=== PATIENT | female | born 1960 | race African-American/Black ===

== ENCOUNTER 2020-07-28 18:12 | Inpatient (IN) | payer BC, SELFPAY ==
[~2020-07-28] VITALS: Ht 170.2 cm; Wt 125.6 kg
[~2020-07-28 18:12] MED LIST: AMOX-426 PO; COR6.25 PO; FURO-149 PO; GLIM2TAB PO; GLIP2.5T3 PO; GLU500 PO; METO5TAB8 PO; VALS160T2 PO
[2020-07-28 18:25] VITALS: BP_SYST 159
[2020-07-28] MEDS ORDERED: VANCOMYCIN HCL 1,000 MG in D5W 250 ML IV ONE (18:45)
[2020-07-28] MEDS ORDERED: cefTRIAXone 1 GM IVPB PREMIX 50 ML IV ONE (18:45)
[2020-07-28 19:23] LABS: BASOPHILS # (AUTO) 0.1 K/uL (0.0-0.2); BASOPHILS % (AUTO) 1.1 % (0.0-2.0); EOSINOPHILS # (AUTO) 0.5 K/uL (0.0-0.4); EOSINOPHILS % (AUTO) 4.7 % (0.0-4.0); HEMATOCRIT 30.9 % (36-48); HEMOGLOBIN 10.1 g/dL (12.0-16.0); LYMPHOCYTES # (AUTO) 1.6 K/uL (1.0-5.5); LYMPHOCYTES % (AUTO) 16.3 % (20.5-51.5); MEAN CORPUSCULAR HEMOGLOBIN 28 pg (27-31); MEAN CORPUSCULAR HGB CONC 33 % (32-36); MEAN CORPUSCULAR VOLUME 85 fL (79.0-98.0); MONOCYTES # (AUTO) 1.4 K/uL (0.0-1.0); MONOCYTES % (AUTO) 14.3 % (1.7-9.3); NEUTROPHILS # (AUTO) 6.2 K/uL (1.8-7.7); NEUTROPHILS % (AUTO) 63.6 % (40.0-70.0); PLATELET COUNT (AUTO) 324 K/uL (130-430); RED BLOOD CELL COUNT(AUTO) 3.66 MIL/uL (4.2-6.2); WHITE BLOOD COUNT (AUTO) 9.7 K/uL (4.8-10.8)
[2020-07-28] MEDS ORDERED: metroNIDAZOLE 500 mg/NS 100 ML IV ONE ×2 (19:30→22:32)
[2020-07-28 19:36] LABS: PROTHROMBIN TIME 10.2 SECS (9.5-12.5)
[2020-07-28] MEDS ORDERED: VANCOMYCIN HCL 1000 MG/VIAL IV ONE (19:52)
[2020-07-28 19:54] LABS: POTASSIUM 5.2 mmol/L (3.5-5.1)
[2020-07-28 19:55] LABS: ALBUMIN 2.3 g/dL (3.4-4.8); CALCIUM 8.3 mg/dL (8.4-11.0); CREATININE 3.21 mg/dL (0.55-1.30); TOTAL BILIRUBIN 0.1 mg/dL (0.0-1.0)
[2020-07-28] MEDS ORDERED: CARV6.2554 PO (21:06)
[2020-07-28] MEDS ORDERED: FURO-149 PO (21:06)
[2020-07-28] MEDS ORDERED: METO5TAB8 PO (21:12)
[2020-07-28] MEDS ORDERED: INSU100V9 SQ (21:12)
[2020-07-28] MEDS ORDERED: INSU200I SQ (21:12)
[2020-07-28] MEDS ORDERED: DORZ10DR21 OP (21:12)
[2020-07-28] MEDS ORDERED: LOSA50TA28 PO (21:12)
[2020-07-28] MEDS ORDERED: HYDROcodone/ACETAMIN 10-325 MG TAB PO PRN (22:15)
[2020-07-28] MEDS ORDERED: NALOXONE HCL 0.4 MG/ML AMP (NARCAN) IVP PRN (22:15)
[2020-07-28 22:48] LABS: BILIRUBIN,URINE NEGATIVE (NEGATIVE); BLOOD, URINE 3+ (NEGATIVE); COLOR,URINE YELLOW (YELLOW); GLUCOSE,URINE 1+ (NEGATIVE); KETONES,URINE NEGATIVE (NEGATIVE); LEUKOCYTE ESTERASE ,URINE TRACE (NEGATIVE); NITRITE, URINE NEGATIVE (NEGATIVE); PROTEIN URINE 3+ (NEGATIVE); UROBILINOGEN,URINE 0.2 (0.2-1.0)
[2020-07-28 22:49] LABS: CLARITY/URINE CLOUDY (CLEAR)
[2020-07-28 23:04] LABS: BACTERIA,URINE FEW /HPF (None Seen); RBC,URINE 20-50 /HPF (0-3)
[2020-07-28 23:45] VITALS: BP_SYST 131
[2020-07-29] MEDS ORDERED: PIPERACILLIN/TAZOBACTAM 2.25 GM VIAL IV ONE (00:24)
[2020-07-29] MEDS: PIPERACILLIN/TAZO 2.25G/DEX-IS 50 ML IV SCH ×2 (00:47→06:45)
[2020-07-29 06:19] LABS: BASOPHILS # (AUTO) 0.1 K/uL (0.0-0.2); BASOPHILS % (AUTO) 0.8 % (0.0-2.0); EOSINOPHILS # (AUTO) 0.5 K/uL (0.0-0.4); EOSINOPHILS % (AUTO) 5.3 % (0.0-4.0); HEMATOCRIT 32.5 % (36-48); HEMOGLOBIN 10.7 g/dL (12.0-16.0); LYMPHOCYTES # (AUTO) 1.6 K/uL (1.0-5.5); LYMPHOCYTES % (AUTO) 18.6 % (20.5-51.5); MEAN CORPUSCULAR HEMOGLOBIN 28 pg (27-31); MEAN CORPUSCULAR HGB CONC 33 % (32-36); MEAN CORPUSCULAR VOLUME 84 fL (79.0-98.0); MONOCYTES # (AUTO) 1.1 K/uL (0.0-1.0); MONOCYTES % (AUTO) 12.5 % (1.7-9.3); NEUTROPHILS # (AUTO) 5.6 K/uL (1.8-7.7); NEUTROPHILS % (AUTO) 62.8 % (40.0-70.0); PLATELET COUNT (AUTO) 358 K/uL (130-430); RED BLOOD CELL COUNT(AUTO) 3.87 MIL/uL (4.2-6.2); RED CELL DISTRIBUTION WIDTH 12.7 % (9.0-15.0); WHITE BLOOD COUNT (AUTO) 8.9 K/uL (4.8-10.8)
[2020-07-29 06:28] LABS: CALCIUM 8.4 mg/dL (8.4-11.0); CREATININE 3.02 mg/dL (0.55-1.30); POTASSIUM 4.8 mmol/L (3.5-5.1)
[2020-07-29] MEDS: INSULIN REGULAR, HUMAN 100 UNITS/ML, 10 ML VIAL (humuLIN R) SUBCUT PRN ×3 (06:50→21:57)
[2020-07-29] MEDS: GLIMEPIRIDE 2 MG TABLET PO SCH (06:51)
[2020-07-29 08:00] VITALS: BP_SYST 135
[2020-07-29] MEDS ORDERED: metFORMIN HCL 500 MG TABLET PO SCH (08:00)
[2020-07-29] MEDS ORDERED: *CUBICIN 6 MG/KG Q48H/PHARMACY XX PRN (08:30)
[2020-07-29] MEDS: FUROSEMIDE 40 MG TABLET PO SCH ×2 (08:33→21:48)
[2020-07-29] MEDS: CARVEDILOL 6.25 MG TABLET (COREG) PO SCH ×2 (08:33→21:00)
[2020-07-29] MEDS: INSULIN GLARGINE 100 UNITS/ML 10 ML VIAL SQ SCH (08:34)
[2020-07-29] MEDS: metOLazone 5 MG TABLET PO SCH (08:34)
[2020-07-29] MEDS ORDERED: glipiZIDE XL 2.5 MG/TAB (GLUCOTROL XL) PO SCH (09:00)
[2020-07-29] MEDS ORDERED: AMOXICILLIN/CLAVULANATE POTASSIUM 875 MG TABLET PO SCH (09:00)
[2020-07-29] MEDS ORDERED: LOSARTAN POTASSIUM 50 MG TABLET (COZAAR) PO SCH (09:00)
[2020-07-29] MEDS: CEFEPIME 0.5 GM in D5W 50 ML IV SCH ×2 (09:42→22:45)
[2020-07-29] MEDS ORDERED: DAPTOmycin 500 MG in NS 50 ML IV SCH (10:00)
[2020-07-29 12:06] VITALS: BP_SYST 139
[2020-07-29] MEDS: BALSAM PERU/CASTOR OIL 60 GM OINT...G. TP SCH (13:15)
[2020-07-29 15:52] VITALS: BP_SYST 142
[2020-07-29 20:00] VITALS: BP_SYST 134
[2020-07-29] MEDS: metroNIDAZOLE 250 mg/NS 50 ML IV SCH (21:49)
[2020-07-29] MEDS: ENOXAPARIN SODIUM 30 MG/0.3 ML SYRINGE SUBCUT SCH (21:56)
[2020-07-30 00:12] VITALS: BP_SYST 146
[2020-07-30] MEDS: LINEZOLID 300 ML IV SCH ×3 (00:17→21:05)
[2020-07-30] MEDS: metroNIDAZOLE 250 mg/NS 50 ML IV SCH ×3 (06:17→21:06)
[2020-07-30] MEDS: GLIMEPIRIDE 2 MG TABLET PO SCH (06:39)
[2020-07-30] MEDS: INSULIN GLARGINE 100 UNITS/ML 10 ML VIAL SQ SCH (09:00)
[2020-07-30] MEDS: CEFEPIME 0.5 GM in D5W 50 ML IV SCH ×2 (09:20→21:22)
[2020-07-30] MEDS: FUROSEMIDE 40 MG TABLET PO SCH ×2 (09:24→21:13)
[2020-07-30] MEDS: BALSAM PERU/CASTOR OIL 60 GM OINT...G. TP SCH (09:25)
[2020-07-30] MEDS: CARVEDILOL 6.25 MG TABLET (COREG) PO SCH ×2 (09:25→21:00)
[2020-07-30 11:23] VITALS: BP_SYST 127
[2020-07-30] MEDS ORDERED: ONDANSETRON HCL 4 MG/2 ML VIAL ONE (11:34)
[2020-07-30] MEDS: ONDANSETRON HCL 4 MG/2 ML VIAL IVP PRN ×2 (11:42→21:22)
[2020-07-30] MEDS: metOLazone 5 MG TABLET PO SCH (11:43)
[2020-07-30] MEDS: INSULIN REGULAR, HUMAN 100 UNITS/ML, 10 ML VIAL (humuLIN R) SUBCUT PRN ×2 (17:14→21:21)
[2020-07-30] MEDS: calcitrioL 0.25 MCG CAPSULE PO SCH (19:00)
[2020-07-30 19:45] VITALS: BP_SYST 133
[2020-07-30] MEDS: ENOXAPARIN SODIUM 30 MG/0.3 ML SYRINGE SUBCUT SCH (21:20)
[2020-07-31] VITALS: BP_SYST 162
[2020-07-31] MEDS: metroNIDAZOLE 250 mg/NS 50 ML IV SCH ×3 (05:06→22:13)
[2020-07-31 06:27] LABS: BASOPHILS # (AUTO) 0.1 K/uL (0.0-0.2); BASOPHILS % (AUTO) 1.1 % (0.0-2.0); EOSINOPHILS # (AUTO) 0.6 K/uL (0.0-0.4); HEMATOCRIT 31.4 % (36-48); HEMOGLOBIN 10.2 g/dL (12.0-16.0); LYMPHOCYTES # (AUTO) 1.6 K/uL (1.0-5.5); LYMPHOCYTES % (AUTO) 20.7 % (20.5-51.5); MEAN CORPUSCULAR HEMOGLOBIN 27 pg (27-31); MEAN CORPUSCULAR HGB CONC 33 % (32-36); MEAN CORPUSCULAR VOLUME 84 fL (79.0-98.0); MONOCYTES % (AUTO) 12.1 % (1.7-9.3); NEUTROPHILS # (AUTO) 4.6 K/uL (1.8-7.7); NEUTROPHILS % (AUTO) 58.1 % (40.0-70.0); PLATELET COUNT (AUTO) 352 K/uL (130-430); RED BLOOD CELL COUNT(AUTO) 3.75 MIL/uL (4.2-6.2); RED CELL DISTRIBUTION WIDTH 12.7 % (9.0-15.0); WHITE BLOOD COUNT (AUTO) 7.9 K/uL (4.8-10.8)
[2020-07-31] MEDS: GLIMEPIRIDE 2 MG TABLET PO SCH (06:55)
[2020-07-31 07:21] LABS: ALBUMIN 2.1 g/dL (3.4-4.8); CALCIUM 8.5 mg/dL (8.4-11.0); CREATININE 3.14 mg/dL (0.55-1.30); PHOSPHORUS 5.1 mg/dL (2.7-4.5); POTASSIUM 4.4 mmol/L (3.5-5.1); TOTAL BILIRUBIN 0.1 mg/dL (0.0-1.0)
[2020-07-31 08:00] VITALS: BP_SYST 158
[2020-07-31] MEDS: metOLazone 5 MG TABLET PO SCH (08:27)
[2020-07-31] MEDS: calcitrioL 0.25 MCG CAPSULE PO SCH (08:27)
[2020-07-31] MEDS: FUROSEMIDE 40 MG TABLET PO SCH ×2 (08:28→20:37)
[2020-07-31] MEDS: CARVEDILOL 6.25 MG TABLET (COREG) PO SCH ×3 (08:28→20:37)
[2020-07-31] MEDS: LOSARTAN POTASSIUM 50 MG TABLET (COZAAR) PO SCH ×2 (08:29→08:37)
[2020-07-31] MEDS: BALSAM PERU/CASTOR OIL 60 GM OINT...G. TP SCH (08:29)
[2020-07-31] MEDS: INSULIN GLARGINE 100 UNITS/ML 10 ML VIAL SQ SCH (08:32)
[2020-07-31 12:00] VITALS: BP_SYST 150
[2020-07-31] MEDS: CEFEPIME 0.5 GM in D5W 50 ML IV SCH (12:27)
[2020-07-31] MEDS ORDERED: LINEZOLID 300 ML IV SCH (13:00)
[2020-07-31] MEDS: ONDANSETRON HCL 4 MG/2 ML VIAL IVP PRN (14:36)
[2020-07-31 16:00] VITALS: BP_SYST 121
[2020-07-31] MEDS: INSULIN REGULAR, HUMAN 100 UNITS/ML, 10 ML VIAL (humuLIN R) SUBCUT PRN (17:52)
[2020-07-31 19:00] VITALS: BP_SYST 153
[2020-07-31 20:00] VITALS: BP_SYST 153
[2020-07-31] MEDS: ENOXAPARIN SODIUM 30 MG/0.3 ML SYRINGE SUBCUT SCH (20:41)
[2020-08-01 00:11] VITALS: BP_SYST 153
[2020-08-01] MEDS: CEFEPIME 0.5 GM in D5W 50 ML IV SCH ×2 (00:27→11:28)
[2020-08-01] MEDS: metroNIDAZOLE 250 mg/NS 50 ML IV SCH ×3 (05:20→21:32)
[2020-08-01] MEDS: GLIMEPIRIDE 2 MG TABLET PO SCH (05:28)
[2020-08-01 06:25] LABS: BASOPHILS # (AUTO) 0.1 K/uL (0.0-0.2); BASOPHILS % (AUTO) 1.1 % (0.0-2.0); EOSINOPHILS # (AUTO) 0.6 K/uL (0.0-0.4); HEMATOCRIT 31.9 % (36-48); HEMOGLOBIN 10.6 g/dL (12.0-16.0); LYMPHOCYTES # (AUTO) 1.7 K/uL (1.0-5.5); LYMPHOCYTES % (AUTO) 23.9 % (20.5-51.5); MEAN CORPUSCULAR HEMOGLOBIN 28 pg (27-31); MEAN CORPUSCULAR HGB CONC 33 % (32-36); MEAN CORPUSCULAR VOLUME 83 fL (79.0-98.0); MONOCYTES # (AUTO) 0.9 K/uL (0.0-1.0); MONOCYTES % (AUTO) 12.8 % (1.7-9.3); NEUTROPHILS # (AUTO) 3.9 K/uL (1.8-7.7); NEUTROPHILS % (AUTO) 54.2 % (40.0-70.0); PLATELET COUNT (AUTO) 382 K/uL (130-430); RED BLOOD CELL COUNT(AUTO) 3.84 MIL/uL (4.2-6.2); RED CELL DISTRIBUTION WIDTH 12.9 % (9.0-15.0); WHITE BLOOD COUNT (AUTO) 7.2 K/uL (4.8-10.8)
[2020-08-01 07:37] LABS: ALBUMIN 2.4 g/dL (3.4-4.8); CALCIUM 8.5 mg/dL (8.4-11.0); CREATININE 3.71 mg/dL (0.55-1.30); POTASSIUM 4.5 mmol/L (3.5-5.1); TOTAL BILIRUBIN 0.2 mg/dL (0.0-1.0)
[2020-08-01 08:06] VITALS: BP_SYST 141
[2020-08-01] MEDS: FUROSEMIDE 40 MG TABLET PO SCH (08:31)
[2020-08-01] MEDS: calcitrioL 0.25 MCG CAPSULE PO SCH (08:31)
[2020-08-01] MEDS: metOLazone 5 MG TABLET PO SCH (08:33)
[2020-08-01] MEDS: LOSARTAN POTASSIUM 50 MG TABLET (COZAAR) PO SCH (08:34)
[2020-08-01] MEDS: CARVEDILOL 6.25 MG TABLET (COREG) PO SCH ×2 (08:35→22:09)
[2020-08-01] MEDS: INSULIN GLARGINE 100 UNITS/ML 10 ML VIAL SQ SCH (08:39)
[2020-08-01] MEDS: BALSAM PERU/CASTOR OIL 60 GM OINT...G. TP SCH (08:40)
[2020-08-01 12:06] VITALS: BP_SYST 125
[2020-08-01 16:04] VITALS: BP_SYST 148
[2020-08-01] MEDS: ONDANSETRON HCL 4 MG/2 ML VIAL IVP PRN (16:47)
[2020-08-01] MEDS: INSULIN REGULAR, HUMAN 100 UNITS/ML, 10 ML VIAL (humuLIN R) SUBCUT PRN ×2 (16:56→21:36)
[2020-08-01] MEDS: NACL 0.9% 1,000 ML IV SCH (18:16)
[2020-08-01 20:00] VITALS: BP_SYST 151
[2020-08-01] MEDS: ENOXAPARIN SODIUM 30 MG/0.3 ML SYRINGE SUBCUT SCH (21:35)
[2020-08-02] VITALS: BP_SYST 132
[2020-08-02] MEDS: ONDANSETRON HCL 4 MG/2 ML VIAL IVP PRN (00:04)
[2020-08-02] MEDS: CEFEPIME 0.5 GM in D5W 50 ML IV SCH ×2 (00:04→11:19)
[2020-08-02] MEDS: GLIMEPIRIDE 2 MG TABLET PO SCH (06:33)
[2020-08-02] MEDS: metroNIDAZOLE 250 mg/NS 50 ML IV SCH ×3 (06:33→23:09)
[2020-08-02 07:19] LABS: BASOPHILS # (AUTO) 0.1 K/uL (0.0-0.2); BASOPHILS % (AUTO) 0.9 % (0.0-2.0); EOSINOPHILS # (AUTO) 0.5 K/uL (0.0-0.4); EOSINOPHILS % (AUTO) 7.8 % (0.0-4.0); HEMATOCRIT 30.8 % (36-48); HEMOGLOBIN 10.1 g/dL (12.0-16.0); LYMPHOCYTES # (AUTO) 1.8 K/uL (1.0-5.5); LYMPHOCYTES % (AUTO) 26.6 % (20.5-51.5); MEAN CORPUSCULAR HEMOGLOBIN 27 pg (27-31); MEAN CORPUSCULAR HGB CONC 33 % (32-36); MEAN CORPUSCULAR VOLUME 84 fL (79.0-98.0); MONOCYTES # (AUTO) 0.9 K/uL (0.0-1.0); MONOCYTES % (AUTO) 12.7 % (1.7-9.3); NEUTROPHILS # (AUTO) 3.5 K/uL (1.8-7.7); PLATELET COUNT (AUTO) 373 K/uL (130-430); RED BLOOD CELL COUNT(AUTO) 3.68 MIL/uL (4.2-6.2); RED CELL DISTRIBUTION WIDTH 12.9 % (9.0-15.0); WHITE BLOOD COUNT (AUTO) 6.7 K/uL (4.8-10.8)
[2020-08-02 07:42] LABS: ALBUMIN 2.3 g/dL (3.4-4.8); CALCIUM 8.2 mg/dL (8.4-11.0); CREATININE 3.47 mg/dL (0.55-1.30); POTASSIUM 4.4 mmol/L (3.5-5.1); TOTAL BILIRUBIN 0.2 mg/dL (0.0-1.0)
[2020-08-02 08:00] VITALS: BP_SYST 159
[2020-08-02] MEDS: CARVEDILOL 6.25 MG TABLET (COREG) PO SCH ×2 (08:59→21:05)
[2020-08-02] MEDS: metOLazone 5 MG TABLET PO SCH (09:00)
[2020-08-02] MEDS: calcitrioL 0.25 MCG CAPSULE PO SCH (09:00)
[2020-08-02] MEDS: BALSAM PERU/CASTOR OIL 60 GM OINT...G. TP SCH (09:00)
[2020-08-02] MEDS: INSULIN GLARGINE 100 UNITS/ML 10 ML VIAL SQ SCH (09:03)
[2020-08-02] MEDS: EPOETIN ALFA 10,000 UNITS/ML VIAL SUBCUT SCH (09:51)
[2020-08-02] MEDS: NACL 0.9% 1,000 ML IV SCH (09:51)
[2020-08-02 11:29] VITALS: BP_SYST 114
[2020-08-02 15:00] VITALS: BP_SYST 116
[2020-08-02] MEDS: INSULIN REGULAR, HUMAN 100 UNITS/ML, 10 ML VIAL (humuLIN R) SUBCUT PRN ×2 (17:06→21:14)
[2020-08-02] MEDS ORDERED: TEMAZEPAM 7.5 MG CAPSULE PO PRN (19:00)
[2020-08-02 20:00] VITALS: BP_SYST 132
[2020-08-02] MEDS: ENOXAPARIN SODIUM 30 MG/0.3 ML SYRINGE SUBCUT SCH (21:13)
[2020-08-03] MEDS: CEFEPIME 0.5 GM in D5W 50 ML IV SCH (00:30)
[2020-08-03] MEDS: GLIMEPIRIDE 2 MG TABLET PO SCH (06:21)
[2020-08-03] MEDS: metroNIDAZOLE 250 mg/NS 50 ML IV SCH (06:21)
[2020-08-03 08:00] VITALS: BP_SYST 168
[2020-08-03] MEDS: CARVEDILOL 6.25 MG TABLET (COREG) PO SCH ×2 (08:30→20:50)
[2020-08-03] MEDS: metOLazone 5 MG TABLET PO SCH (08:30)
[2020-08-03] MEDS: calcitrioL 0.25 MCG CAPSULE PO SCH (08:31)
[2020-08-03] MEDS: INSULIN GLARGINE 100 UNITS/ML 10 ML VIAL SQ SCH (08:41)
[2020-08-03] MEDS: BALSAM PERU/CASTOR OIL 60 GM OINT...G. TP SCH (08:44)
[2020-08-03] MEDS: INSULIN REGULAR, HUMAN 100 UNITS/ML, 10 ML VIAL (humuLIN R) SUBCUT PRN (11:36)
[2020-08-03 12:05] VITALS: BP_SYST 130
[2020-08-03 16:15] VITALS: BP_SYST 134
[2020-08-03 20:00] VITALS: BP_SYST 152
[2020-08-03] MEDS: ENOXAPARIN SODIUM 30 MG/0.3 ML SYRINGE SUBCUT SCH (20:48)
[2020-08-03] MEDS: ceFAZolin SODIUM 1 GM in D5W 50 ML IV SCH (20:51)
[2020-08-04] VITALS: BP_SYST 157
[2020-08-04] MEDS: GLIMEPIRIDE 2 MG TABLET PO SCH ×2 (06:26→06:28)
[2020-08-04 07:45] VITALS: BP_SYST 174
[2020-08-04] MEDS: BALSAM PERU/CASTOR OIL 60 GM OINT...G. TP SCH (09:00)
[2020-08-04] MEDS: calcitrioL 0.25 MCG CAPSULE PO SCH (09:19)
[2020-08-04] MEDS: metOLazone 5 MG TABLET PO SCH (09:19)
[2020-08-04] MEDS: CARVEDILOL 6.25 MG TABLET (COREG) PO SCH ×2 (09:20→21:42)
[2020-08-04] MEDS: EPOETIN ALFA 10,000 UNITS/ML VIAL SUBCUT SCH (09:20)
[2020-08-04] MEDS: INSULIN GLARGINE 100 UNITS/ML 10 ML VIAL SQ SCH (09:22)
[2020-08-04] MEDS: ceFAZolin SODIUM 1 GM in D5W 50 ML IV SCH ×2 (09:37→21:34)
[2020-08-04 12:00] VITALS: BP_SYST 163
[2020-08-04] MEDS ORDERED: DEXTROSE 50% JECT 50 ML DISP.SYRIN IVP PRN (12:45)
[2020-08-04] MEDS ORDERED: D5W 1,000 ML IV PRN (12:45)
[2020-08-04] MEDS ORDERED: GLUCOSE (DEXTROSE) ORAL GEL -Adults PO PRN (12:45)
[2020-08-04] MEDS: INSULIN REGULAR, HUMAN 100 UNITS/ML, 10 ML VIAL (humuLIN R) SUBCUT PRN ×2 (12:57→17:25)
[2020-08-04 16:00] VITALS: BP_SYST 158
[2020-08-04 20:00] VITALS: BP_SYST 155
[2020-08-04] MEDS: ENOXAPARIN SODIUM 30 MG/0.3 ML SYRINGE SUBCUT SCH (21:00)
[2020-08-05 01:12] VITALS: BP_SYST 179
[2020-08-05] MEDS: GLIMEPIRIDE 2 MG TABLET PO SCH (07:00)
[2020-08-05 08:00] VITALS: BP_SYST 130
[2020-08-05] MEDS: INSULIN GLARGINE 100 UNITS/ML 10 ML VIAL SQ SCH (09:00)
[2020-08-05] MEDS: metOLazone 5 MG TABLET PO SCH (09:00)
[2020-08-05] MEDS: calcitrioL 0.25 MCG CAPSULE PO SCH (09:00)
[2020-08-05] MEDS: CARVEDILOL 6.25 MG TABLET (COREG) PO SCH ×3 (09:00→22:44)
[2020-08-05] MEDS: BALSAM PERU/CASTOR OIL 60 GM OINT...G. TP SCH (09:00)
[2020-08-05] MEDS: ceFAZolin SODIUM 1 GM in D5W 50 ML IV SCH ×2 (09:19→22:16)
[2020-08-05 10:25] LABS: BASOPHILS # (AUTO) 0.1 K/uL (0.0-0.2); EOSINOPHILS # (AUTO) 0.7 K/uL (0.0-0.4); EOSINOPHILS % (AUTO) 6.4 % (0.0-4.0); HEMOGLOBIN 10.3 g/dL (12.0-16.0); LYMPHOCYTES # (AUTO) 1.6 K/uL (1.0-5.5); LYMPHOCYTES % (AUTO) 14.1 % (20.5-51.5); MEAN CORPUSCULAR HEMOGLOBIN 27 pg (27-31); MEAN CORPUSCULAR HGB CONC 32 % (32-36); MEAN CORPUSCULAR VOLUME 85 fL (79.0-98.0); MONOCYTES # (AUTO) 1.3 K/uL (0.0-1.0); MONOCYTES % (AUTO) 11.6 % (1.7-9.3); NEUTROPHILS # (AUTO) 7.8 K/uL (1.8-7.7); NEUTROPHILS % (AUTO) 66.9 % (40.0-70.0); PLATELET COUNT (AUTO) 354 K/uL (130-430); RED BLOOD CELL COUNT(AUTO) 3.78 MIL/uL (4.2-6.2); RED CELL DISTRIBUTION WIDTH 13.3 % (9.0-15.0); WHITE BLOOD COUNT (AUTO) 11.6 K/uL (4.8-10.8)
[2020-08-05 10:28] LABS: CALCIUM 8.9 mg/dL (8.4-11.0); CREATININE 2.65 mg/dL (0.55-1.30); POTASSIUM 4.6 mmol/L (3.5-5.1)
[2020-08-05 10:34] LABS: ALBUMIN 2.4 g/dL (3.4-4.8); TOTAL BILIRUBIN 0.2 mg/dL (0.0-1.0)
[2020-08-05 10:58] LABS: PROTHROMBIN TIME 10.4 SECS (9.5-12.5)
[2020-08-05 11:19] VITALS: BP_SYST 148
[2020-08-05] MEDS ORDERED: ONDANSETRON HCL 4 MG/2 ML VIAL IVP PRN ×2 (12:30→14:45)
[2020-08-05] MEDS ORDERED: fentaNYL CITRATE/PF 100 MCG/2 ML AMP IVP PRN ×2 (12:30)
[2020-08-05 13:13] VITALS: BP_SYST 148
[2020-08-05] MEDS ORDERED: NACL 0.9% 1,000 ML IV SCH (14:45)
[2020-08-05] MEDS ORDERED: HYDROmorphone 1 MG INJ. 1 MG/ML CARTRIDGE IVP PRN ×2 (14:45)
[2020-08-05] MEDS ORDERED: MEPERIDINE HCL/PF 25 MG/ML DISP.SYRIN IVP PRN (14:45)
[2020-08-05] MEDS ORDERED: METOCLOPRAMIDE HCL 10 MG/2 ML VIAL IVP PRN (14:45)
[2020-08-05 16:00] VITALS: BP_SYST 151
[2020-08-05 20:00] VITALS: BP_SYST 135
[2020-08-05] MEDS: ENOXAPARIN SODIUM 30 MG/0.3 ML SYRINGE SUBCUT SCH (21:00)
[2020-08-05] MEDS: INSULIN REGULAR, HUMAN 100 UNITS/ML, 10 ML VIAL (humuLIN R) SUBCUT PRN (22:15)
[2020-08-05] MEDS: BENZONATATE 100 MG CAPSULE (TESSALON) PO SCH (23:00)
[2020-08-06] VITALS: BP_SYST 171
[2020-08-06] MEDS: INSULIN REGULAR, HUMAN 100 UNITS/ML, 10 ML VIAL (humuLIN R) SUBCUT PRN ×3 (06:13→21:14)
[2020-08-06] MEDS: GLIMEPIRIDE 2 MG TABLET PO SCH (06:14)
[2020-08-06 06:43] LABS: BASOPHILS # (AUTO) 0.1 K/uL (0.0-0.2); BASOPHILS % (AUTO) 0.6 % (0.0-2.0); EOSINOPHILS # (AUTO) 0.8 K/uL (0.0-0.4); EOSINOPHILS % (AUTO) 6.9 % (0.0-4.0); HEMATOCRIT 30.7 % (36-48); LYMPHOCYTES # (AUTO) 1.4 K/uL (1.0-5.5); LYMPHOCYTES % (AUTO) 12.1 % (20.5-51.5); MEAN CORPUSCULAR HEMOGLOBIN 27 pg (27-31); MEAN CORPUSCULAR HGB CONC 33 % (32-36); MEAN CORPUSCULAR VOLUME 84 fL (79.0-98.0); MONOCYTES # (AUTO) 1.3 K/uL (0.0-1.0); MONOCYTES % (AUTO) 11.4 % (1.7-9.3); PLATELET COUNT (AUTO) 319 K/uL (130-430); RED BLOOD CELL COUNT(AUTO) 3.65 MIL/uL (4.2-6.2); RED CELL DISTRIBUTION WIDTH 13.1 % (9.0-15.0); WHITE BLOOD COUNT (AUTO) 11.6 K/uL (4.8-10.8)
[2020-08-06 07:05] LABS: ALBUMIN 2.4 g/dL (3.4-4.8); CALCIUM 8.6 mg/dL (8.4-11.0); CREATININE 2.56 mg/dL (0.55-1.30); POTASSIUM 4.6 mmol/L (3.5-5.1); TOTAL BILIRUBIN 0.2 mg/dL (0.0-1.0)
[2020-08-06 08:00] VITALS: BP_SYST 140
[2020-08-06] MEDS: BENZONATATE 100 MG CAPSULE (TESSALON) PO SCH ×2 (08:20→20:56)
[2020-08-06] MEDS: calcitrioL 0.25 MCG CAPSULE PO SCH (08:20)
[2020-08-06] MEDS: metOLazone 5 MG TABLET PO SCH (08:20)
[2020-08-06] MEDS: BALSAM PERU/CASTOR OIL 60 GM OINT...G. TP SCH (08:21)
[2020-08-06] MEDS: ceFAZolin SODIUM 1 GM in D5W 50 ML IV SCH ×2 (08:29→20:41)
[2020-08-06] MEDS: EPOETIN ALFA 10,000 UNITS/ML VIAL SUBCUT SCH (09:53)
[2020-08-06] MEDS: INSULIN GLARGINE 100 UNITS/ML 10 ML VIAL SQ SCH (10:01)
[2020-08-06 11:32] VITALS: BP_SYST 134
[2020-08-06 15:33] VITALS: BP_SYST 132
[2020-08-06] MEDS ORDERED: LIDOCAINE VISCOUS 2%, 15 ML UDC MM PRN (17:30)
[2020-08-06 20:00] VITALS: BP_SYST 150
[2020-08-06] MEDS: CARVEDILOL 6.25 MG TABLET (COREG) PO SCH (20:57)
[2020-08-06] MEDS: ENOXAPARIN SODIUM 30 MG/0.3 ML SYRINGE SUBCUT SCH (21:12)
[2020-08-07] VITALS: BP_SYST 137
[2020-08-07] MEDS: GLIMEPIRIDE 2 MG TABLET PO SCH (06:16)
[2020-08-07] MEDS: INSULIN REGULAR, HUMAN 100 UNITS/ML, 10 ML VIAL (humuLIN R) SUBCUT PRN ×4 (06:16→20:43)
[2020-08-07 07:34] LABS: BASOPHILS # (AUTO) 0.1 K/uL (0.0-0.2); BASOPHILS % (AUTO) 0.6 % (0.0-2.0); EOSINOPHILS # (AUTO) 0.7 K/uL (0.0-0.4); EOSINOPHILS % (AUTO) 6.1 % (0.0-4.0); HEMATOCRIT 31.9 % (36-48); HEMOGLOBIN 10.3 g/dL (12.0-16.0); LYMPHOCYTES # (AUTO) 2.1 K/uL (1.0-5.5); LYMPHOCYTES % (AUTO) 18.3 % (20.5-51.5); MEAN CORPUSCULAR HEMOGLOBIN 27 pg (27-31); MEAN CORPUSCULAR HGB CONC 32 % (32-36); MEAN CORPUSCULAR VOLUME 85 fL (79.0-98.0); MONOCYTES # (AUTO) 1.4 K/uL (0.0-1.0); MONOCYTES % (AUTO) 11.8 % (1.7-9.3); NEUTROPHILS # (AUTO) 7.4 K/uL (1.8-7.7); NEUTROPHILS % (AUTO) 63.2 % (40.0-70.0); PLATELET COUNT (AUTO) 362 K/uL (130-430); RED BLOOD CELL COUNT(AUTO) 3.75 MIL/uL (4.2-6.2); RED CELL DISTRIBUTION WIDTH 13.3 % (9.0-15.0); WHITE BLOOD COUNT (AUTO) 11.8 K/uL (4.8-10.8)
[2020-08-07 08:15] LABS: ALBUMIN 2.6 g/dL (3.4-4.8); CALCIUM 8.5 mg/dL (8.4-11.0); CREATININE 2.65 mg/dL (0.55-1.30); POTASSIUM 4.3 mmol/L (3.5-5.1); TOTAL BILIRUBIN 0.1 mg/dL (0.0-1.0)
[2020-08-07] MEDS: calcitrioL 0.25 MCG CAPSULE PO SCH (08:25)
[2020-08-07] MEDS: ceFAZolin SODIUM 1 GM in D5W 50 ML IV SCH ×2 (08:25→20:27)
[2020-08-07] MEDS: BENZONATATE 100 MG CAPSULE (TESSALON) PO SCH ×2 (08:25→20:28)
[2020-08-07] MEDS: CARVEDILOL 6.25 MG TABLET (COREG) PO SCH ×2 (08:27→20:28)
[2020-08-07] MEDS: INSULIN GLARGINE 100 UNITS/ML 10 ML VIAL SQ SCH (08:33)
[2020-08-07] MEDS: metOLazone 5 MG TABLET PO SCH (08:34)
[2020-08-07] MEDS: BALSAM PERU/CASTOR OIL 60 GM OINT...G. TP SCH (08:42)
[2020-08-07 11:24] VITALS: BP_SYST 144
[2020-08-07 11:29] LABS: PROTHROMBIN TIME 10.7 SECS (9.5-12.5)
[2020-08-07 15:26] VITALS: BP_SYST 154
[2020-08-07] MEDS: ENOXAPARIN SODIUM 30 MG/0.3 ML SYRINGE SUBCUT SCH (19:04)
[2020-08-07 20:14] VITALS: BP_SYST 158
[2020-08-07 23:56] VITALS: BP_SYST 161
[2020-08-08] MEDS: GLIMEPIRIDE 2 MG TABLET PO SCH (06:32)
[2020-08-08] MEDS: INSULIN REGULAR, HUMAN 100 UNITS/ML, 10 ML VIAL (humuLIN R) SUBCUT PRN ×2 (06:33→22:15)
[2020-08-08 06:39] LABS: BASOPHILS # (AUTO) 0.1 K/uL (0.0-0.2); BASOPHILS % (AUTO) 1.1 % (0.0-2.0); EOSINOPHILS # (AUTO) 0.8 K/uL (0.0-0.4); EOSINOPHILS % (AUTO) 6.7 % (0.0-4.0); HEMATOCRIT 32.6 % (36-48); HEMOGLOBIN 10.6 g/dL (12.0-16.0); LYMPHOCYTES # (AUTO) 1.9 K/uL (1.0-5.5); MEAN CORPUSCULAR HEMOGLOBIN 28 pg (27-31); MEAN CORPUSCULAR HGB CONC 33 % (32-36); MEAN CORPUSCULAR VOLUME 85 fL (79.0-98.0); MONOCYTES # (AUTO) 1.3 K/uL (0.0-1.0); NEUTROPHILS # (AUTO) 7.1 K/uL (1.8-7.7); NEUTROPHILS % (AUTO) 63.2 % (40.0-70.0); PLATELET COUNT (AUTO) 361 K/uL (130-430); RED BLOOD CELL COUNT(AUTO) 3.85 MIL/uL (4.2-6.2); RED CELL DISTRIBUTION WIDTH 13.5 % (9.0-15.0); WHITE BLOOD COUNT (AUTO) 11.2 K/uL (4.8-10.8)
[2020-08-08 06:56] LABS: ALBUMIN 2.6 g/dL (3.4-4.8); CALCIUM 8.9 mg/dL (8.4-11.0); CREATININE 2.64 mg/dL (0.55-1.30); POTASSIUM 4.7 mmol/L (3.5-5.1); TOTAL BILIRUBIN 0.2 mg/dL (0.0-1.0)
[2020-08-08 08:42] VITALS: BP_SYST 161
[2020-08-08] MEDS: INSULIN GLARGINE 100 UNITS/ML 10 ML VIAL SQ SCH (09:00)
[2020-08-08] MEDS: BENZONATATE 100 MG CAPSULE (TESSALON) PO SCH ×2 (09:00→22:02)
[2020-08-08] MEDS: ceFAZolin SODIUM 1 GM in D5W 50 ML IV SCH ×2 (09:00→22:07)
[2020-08-08] MEDS: CARVEDILOL 6.25 MG TABLET (COREG) PO SCH ×2 (09:00→22:07)
[2020-08-08] MEDS: metOLazone 5 MG TABLET PO SCH (09:00)
[2020-08-08] MEDS: BALSAM PERU/CASTOR OIL 60 GM OINT...G. TP SCH (09:00)
[2020-08-08] MEDS: calcitrioL 0.25 MCG CAPSULE PO SCH (09:00)
[2020-08-08] MEDS ORDERED: MIDAZOLAM HCL 5 MG/5 ML VIAL IVP ONE (09:20)
[2020-08-08] MEDS ORDERED: OXYTOCIN 10 UNIT/ML VIAL IV ONE (09:20)
[2020-08-08] MEDS ORDERED: NS 1000 ML IV.SOLN IV ONE (09:20)
[2020-08-08] MEDS ORDERED: fentaNYL CITRATE/PF 100 MCG/2 ML AMP IVP ONE (09:20)
[2020-08-08] MEDS ORDERED: HEPARIN SODIUM, PORCINE 10,000 UNITS/ 10 ML VIAL MC ONE (09:20)
[2020-08-08] MEDS ORDERED: WATER FOR IRRIGATION,STERILE 1,000 ML IRRIG.SOLN IR ONE (09:20)
[2020-08-08] MEDS ORDERED: CEFAZOLIN 1 GM IVPB PREMIX 50 ML IV ONE (09:20)
[2020-08-08] MEDS ORDERED: LIDOCAINE 1% 10 MG/ML, 20 ML MDV INJ ONE (09:20)
[2020-08-08] MEDS ORDERED: NS 50 ML BAG IV ONE (09:20)
[2020-08-08] MEDS ORDERED: VECURONIUM BROMIDE 10 MG/VIAL (NORCURON) IV ONE (09:20)
[2020-08-08] MEDS ORDERED: BUPIVACAINE /PF 0.25% 30 ML VIAL INJ ONE (09:20)
[2020-08-08] MEDS ORDERED: HYDROmorphone 1 MG INJ. 1 MG/ML CARTRIDGE IVP PRN (10:00)
[2020-08-08] MEDS ORDERED: ONDANSETRON HCL 4 MG/2 ML VIAL IVP PRN (10:00)
[2020-08-08] MEDS ORDERED: METOCLOPRAMIDE HCL 10 MG/2 ML VIAL IVP PRN (10:00)
[2020-08-08] MEDS ORDERED: NACL 0.9% 1,000 ML IV SCH (10:00)
[2020-08-08] MEDS ORDERED: HEPARIN SODIUM,PORCINE 5,000 UNITS/ML VIAL MC ONE (15:45)
[2020-08-08 16:45] VITALS: BP_SYST 108
[2020-08-08 20:00] VITALS: BP_SYST 138
[2020-08-08] MEDS: ENOXAPARIN SODIUM 30 MG/0.3 ML SYRINGE SUBCUT SCH (21:00)
[2020-08-09] VITALS: BP_SYST 129
[2020-08-09] MEDS: GLIMEPIRIDE 2 MG TABLET PO SCH (06:44)
[2020-08-09 08:00] VITALS: BP_SYST 128
[2020-08-09] MEDS: BALSAM PERU/CASTOR OIL 60 GM OINT...G. TP SCH (09:00)
[2020-08-09] MEDS: ceFAZolin SODIUM 1 GM in D5W 50 ML IV SCH ×2 (09:17→21:46)
[2020-08-09] MEDS: calcitrioL 0.25 MCG CAPSULE PO SCH (09:18)
[2020-08-09] MEDS: CARVEDILOL 6.25 MG TABLET (COREG) PO SCH ×2 (09:20→21:00)
[2020-08-09] MEDS: BENZONATATE 100 MG CAPSULE (TESSALON) PO SCH ×2 (09:21→21:46)
[2020-08-09] MEDS: metOLazone 5 MG TABLET PO SCH (09:21)
[2020-08-09] MEDS: EPOETIN ALFA 10,000 UNITS/ML VIAL SUBCUT SCH (09:22)
[2020-08-09] MEDS: INSULIN GLARGINE 100 UNITS/ML 10 ML VIAL SQ SCH (09:29)
[2020-08-09] MEDS: INSULIN REGULAR, HUMAN 100 UNITS/ML, 10 ML VIAL (humuLIN R) SUBCUT PRN ×3 (11:51→21:57)
[2020-08-09 12:00] VITALS: BP_SYST 131
[2020-08-09 16:23] VITALS: BP_SYST 143
[2020-08-09] MEDS ORDERED: HEPARIN SODIUM, PORCINE 10,000 UNITS/ 10 ML VIAL MC ONE (16:30)
[2020-08-09] MEDS ORDERED: HEPARIN SODIUM,PORCINE 5,000 UNITS/ML VIAL ONE (17:18)
[2020-08-09 19:00] VITALS: BP_SYST 102
[2020-08-09 20:00] VITALS: BP_SYST 102
[2020-08-09] MEDS: ENOXAPARIN SODIUM 30 MG/0.3 ML SYRINGE SUBCUT SCH (21:58)
[2020-08-10] VITALS: BP_SYST 106
[2020-08-10 03:00] VITALS: BP_SYST 171
[2020-08-10] MEDS: CARVEDILOL 6.25 MG TABLET (COREG) PO SCH ×4 (03:27→20:47)
[2020-08-10 06:44] LABS: BASOPHILS # (AUTO) 0.1 K/uL (0.0-0.2); BASOPHILS % (AUTO) 0.7 % (0.0-2.0); EOSINOPHILS # (AUTO) 0.6 K/uL (0.0-0.4); EOSINOPHILS % (AUTO) 5.6 % (0.0-4.0); HEMATOCRIT 32.5 % (36-48); HEMOGLOBIN 10.5 g/dL (12.0-16.0); LYMPHOCYTES # (AUTO) 2.3 K/uL (1.0-5.5); LYMPHOCYTES % (AUTO) 20.4 % (20.5-51.5); MEAN CORPUSCULAR HEMOGLOBIN 28 pg (27-31); MEAN CORPUSCULAR HGB CONC 33 % (32-36); MEAN CORPUSCULAR VOLUME 85 fL (79.0-98.0); MONOCYTES # (AUTO) 1.9 K/uL (0.0-1.0); MONOCYTES % (AUTO) 16.8 % (1.7-9.3); NEUTROPHILS # (AUTO) 6.4 K/uL (1.8-7.7); NEUTROPHILS % (AUTO) 56.5 % (40.0-70.0); PLATELET COUNT (AUTO) 267 K/uL (130-430); RED BLOOD CELL COUNT(AUTO) 3.83 MIL/uL (4.2-6.2); RED CELL DISTRIBUTION WIDTH 13.7 % (9.0-15.0); WHITE BLOOD COUNT (AUTO) 11.3 K/uL (4.8-10.8)
[2020-08-10 07:17] LABS: BILIRUBIN,URINE NEGATIVE (NEGATIVE); COLOR,URINE YELLOW (YELLOW); GLUCOSE,URINE 1+ (NEGATIVE); KETONES,URINE TRACE (NEGATIVE); LEUKOCYTE ESTERASE ,URINE NEGATIVE (NEGATIVE); NITRITE, URINE NEGATIVE (NEGATIVE); PH,URINE 6.5 (5.0-8.0); PROTEIN URINE 3+ (NEGATIVE); UROBILINOGEN,URINE 0.2 (0.2-1.0)
[2020-08-10 07:46] LABS: ALBUMIN 2.4 g/dL (3.4-4.8); CALCIUM 8.5 mg/dL (8.4-11.0); CREATININE 2.35 mg/dL (0.55-1.30); POTASSIUM 3.8 mmol/L (3.5-5.1); TOTAL BILIRUBIN 0.2 mg/dL (0.0-1.0)
[2020-08-10 08:00] VITALS: BP_SYST 139
[2020-08-10 08:00] LABS: BLOOD, URINE TRACE (NEGATIVE); CLARITY/URINE SLIGHTLY HAZY (CLEAR)
[2020-08-10] MEDS ORDERED: INSULIN GLARGINE 100 UNITS/ML 10 ML VIAL SUBCUT SCH (08:00)
[2020-08-10 08:01] LABS: BACTERIA,URINE FEW /HPF (None Seen); RBC,URINE 0-3 /HPF (0-3); WBC,URINE 0-3 /HPF (0-3)
[2020-08-10 08:02] LABS: HYALINE CASTS, URINE 0-10 /LPF (None Seen); MUCUS,URINE 1+ /LPF (None Seen); YEAST,URINE Moderate /HPF (None Seen)
[2020-08-10] MEDS: calcitrioL 0.25 MCG CAPSULE PO SCH (08:15)
[2020-08-10] MEDS: INSULIN GLARGINE 100 UNITS/ML 10 ML VIAL SUBCUT SCH ×2 (08:19→09:00)
[2020-08-10] MEDS: ONDANSETRON HCL 4 MG/2 ML VIAL IVP PRN (08:20)
[2020-08-10] MEDS: metOLazone 5 MG TABLET PO SCH (10:18)
[2020-08-10] MEDS: BENZONATATE 100 MG CAPSULE (TESSALON) PO SCH ×2 (10:18→20:48)
[2020-08-10] MEDS: BALSAM PERU/CASTOR OIL 60 GM OINT...G. TP SCH (10:19)
[2020-08-10 10:55] LABS: URINE SODIUM, RANDOM 41 mmol/L (40-220)
[2020-08-10 12:24] VITALS: BP_SYST 104
[2020-08-10] MEDS: INSULIN REGULAR, HUMAN 100 UNITS/ML, 10 ML VIAL (humuLIN R) SUBCUT PRN ×3 (12:41→20:53)
[2020-08-10 16:00] VITALS: BP_SYST 156
[2020-08-10 20:05] VITALS: BP_SYST 159
[2020-08-10] MEDS: ceFAZolin SODIUM 1 GM in D5W 50 ML IV SCH (20:44)
[2020-08-10] MEDS: ENOXAPARIN SODIUM 30 MG/0.3 ML SYRINGE SUBCUT SCH (20:55)
[2020-08-11 00:31] VITALS: BP_SYST 160
[2020-08-11 07:47] LABS: BASOPHILS # (AUTO) 0.1 K/uL (0.0-0.2); BASOPHILS % (AUTO) 0.9 % (0.0-2.0); EOSINOPHILS # (AUTO) 0.8 K/uL (0.0-0.4); EOSINOPHILS % (AUTO) 7.6 % (0.0-4.0); HEMATOCRIT 32.9 % (36-48); HEMOGLOBIN 10.6 g/dL (12.0-16.0); LYMPHOCYTES # (AUTO) 2.7 K/uL (1.0-5.5); LYMPHOCYTES % (AUTO) 26.5 % (20.5-51.5); MEAN CORPUSCULAR HEMOGLOBIN 28 pg (27-31); MEAN CORPUSCULAR HGB CONC 32 % (32-36); MEAN CORPUSCULAR VOLUME 85 fL (79.0-98.0); MONOCYTES # (AUTO) 1.1 K/uL (0.0-1.0); MONOCYTES % (AUTO) 10.5 % (1.7-9.3); NEUTROPHILS # (AUTO) 5.5 K/uL (1.8-7.7); NEUTROPHILS % (AUTO) 54.5 % (40.0-70.0); PLATELET COUNT (AUTO) 264 K/uL (130-430); RED BLOOD CELL COUNT(AUTO) 3.85 MIL/uL (4.2-6.2); RED CELL DISTRIBUTION WIDTH 13.7 % (9.0-15.0)
[2020-08-11 07:51] LABS: ALBUMIN 2.4 g/dL (3.4-4.8); CALCIUM 8.5 mg/dL (8.4-11.0); CREATININE 2.97 mg/dL (0.55-1.30); PHOSPHORUS 4.6 mg/dL (2.7-4.5); POTASSIUM 4.1 mmol/L (3.5-5.1); TOTAL BILIRUBIN 0.2 mg/dL (0.0-1.0)
[2020-08-11] MEDS: calcitrioL 0.25 MCG CAPSULE PO SCH (09:00)
[2020-08-11] MEDS: metOLazone 5 MG TABLET PO SCH (09:00)
[2020-08-11] MEDS: BENZONATATE 100 MG CAPSULE (TESSALON) PO SCH ×2 (09:00→20:13)
[2020-08-11] MEDS: CARVEDILOL 6.25 MG TABLET (COREG) PO SCH ×2 (09:00→20:12)
[2020-08-11] MEDS: ceFAZolin SODIUM 1 GM in D5W 50 ML IV SCH ×2 (09:06→20:14)
[2020-08-11] MEDS: INSULIN GLARGINE 100 UNITS/ML 10 ML VIAL SUBCUT SCH (09:17)
[2020-08-11] MEDS: BALSAM PERU/CASTOR OIL 60 GM OINT...G. TP SCH (09:18)
[2020-08-11 12:07] VITALS: BP_SYST 161
[2020-08-11] MEDS: INSULIN REGULAR, HUMAN 100 UNITS/ML, 10 ML VIAL (humuLIN R) SUBCUT PRN ×3 (12:13→20:14)
[2020-08-11] MEDS ORDERED: COMMUNICATION ORDER XX ONE (14:30)
[2020-08-11] MEDS ORDERED: HEPARIN SODIUM,PORCINE 5,000 UNITS/ML VIAL MC ONE (14:45)
[2020-08-11 16:00] VITALS: BP_SYST 134
[2020-08-11] MEDS: EPOETIN ALFA 10,000 UNITS/ML VIAL SUBCUT SCH (17:32)
[2020-08-11 20:00] VITALS: BP_SYST 150
[2020-08-11] MEDS: ENOXAPARIN SODIUM 30 MG/0.3 ML SYRINGE SUBCUT SCH (20:15)
[2020-08-12 00:26] VITALS: BP_SYST 164
[2020-08-12 06:46] LABS: BASOPHILS # (AUTO) 0.1 K/uL (0.0-0.2); BASOPHILS % (AUTO) 0.5 % (0.0-2.0); EOSINOPHILS # (AUTO) 0.8 K/uL (0.0-0.4); EOSINOPHILS % (AUTO) 7.6 % (0.0-4.0); HEMATOCRIT 31.9 % (36-48); HEMOGLOBIN 10.3 g/dL (12.0-16.0); LYMPHOCYTES # (AUTO) 2.2 K/uL (1.0-5.5); LYMPHOCYTES % (AUTO) 20.8 % (20.5-51.5); MEAN CORPUSCULAR HEMOGLOBIN 28 pg (27-31); MEAN CORPUSCULAR HGB CONC 32 % (32-36); MEAN CORPUSCULAR VOLUME 85 fL (79.0-98.0); MONOCYTES # (AUTO) 1.2 K/uL (0.0-1.0); MONOCYTES % (AUTO) 11.5 % (1.7-9.3); NEUTROPHILS # (AUTO) 6.3 K/uL (1.8-7.7); NEUTROPHILS % (AUTO) 59.6 % (40.0-70.0); PLATELET COUNT (AUTO) 249 K/uL (130-430); RED BLOOD CELL COUNT(AUTO) 3.75 MIL/uL (4.2-6.2); RED CELL DISTRIBUTION WIDTH 13.8 % (9.0-15.0); WHITE BLOOD COUNT (AUTO) 10.6 K/uL (4.8-10.8)
[2020-08-12 06:56] LABS: CALCIUM 8.4 mg/dL (8.4-11.0); CREATININE 2.7 mg/dL (0.55-1.30); PHOSPHORUS 4.2 mg/dL (2.7-4.5); POTASSIUM 4.2 mmol/L (3.5-5.1)
[2020-08-12] MEDS: calcitrioL 0.25 MCG CAPSULE PO SCH (08:01)
[2020-08-12] MEDS: BENZONATATE 100 MG CAPSULE (TESSALON) PO SCH (08:01)
[2020-08-12] MEDS: INSULIN GLARGINE 100 UNITS/ML 10 ML VIAL SUBCUT SCH (08:04)
[2020-08-12 08:07] LABS: HEPATITIS A AB, IgM Negative (Negative); HEPATITIS B CORE AB, IgM Negative (Negative); HEPATITIS B SURFACE AG Negative (Negative)
[2020-08-12] MEDS: ceFAZolin SODIUM 1 GM in D5W 50 ML IV SCH (08:08)
[2020-08-12] MEDS: CARVEDILOL 6.25 MG TABLET (COREG) PO SCH (08:22)
[2020-08-12] MEDS: BALSAM PERU/CASTOR OIL 60 GM OINT...G. TP SCH (09:00)
[2020-08-12] MEDS: metOLazone 5 MG TABLET PO SCH (09:01)
[2020-08-12] MEDS ORDERED: CEPH250C PO (09:53)
[2020-08-12] MEDS: INSULIN REGULAR, HUMAN 100 UNITS/ML, 10 ML VIAL (humuLIN R) SUBCUT PRN ×2 (12:00→17:21)
[2020-08-12 12:05] VITALS: BP_SYST 154
[2020-08-12 15:47] VITALS: BP_SYST 161
[2020-08-12 17:40] VITALS: BP_SYST 152
== END 2020-08-12 18:50 | DRG 616 ==
LOC: SED 18:12 → SMU 19:52
PROVIDERS: ADMIT Family Medicine; ATTEND Family Medicine
PROC: 0Y6S0Z0 Detachment at Left 2nd Toe, Complete, Open Approach (ICD-10-PCS; principal; 2020-08-05 14:30)
PROC: 02HV33Z Insertion of Infusion Device into Superior Vena Cava, Percutaneous Approach (ICD-10-PCS; 2020-08-08)
PROC: B518ZZA Fluoroscopy of Superior Vena Cava, Guidance (ICD-10-PCS; 2020-08-08)
PROC: 0JH63XZ Insertion of Tunneled Vascular Access Device into Chest Subcutaneous Tissue and Fascia, Percutaneous Approach (ICD-10-PCS; 2020-08-08)
PROC: B548ZZA Ultrasonography of Superior Vena Cava, Guidance (ICD-10-PCS; 2020-08-08)
PROC: 5A1D70Z Performance of Urinary Filtration, Intermittent, Less than 6 Hours Per Day (ICD-10-PCS; 2020-08-10)
PROC: 5A1D70Z Performance of Urinary Filtration, Intermittent, Less than 6 Hours Per Day (ICD-10-PCS; 2020-08-11)
DX: E11.69 Type 2 diabetes mellitus with other specified complication (principal); M72.6 Necrotizing fasciitis; L03.116 Cellulitis of left lower limb; M86.8X7 Other osteomyelitis, ankle and foot; E11.52 Type 2 diabetes mellitus with diabetic peripheral angiopathy with gangrene; I13.0 Hypertensive heart and chronic kidney disease with heart failure and stage 1 through stage 4 chronic kidney disease, or unspecified chronic kidney disease; Z68.41 Body mass index [BMI] 40.0-44.9, adult; N18.4 Chronic kidney disease, stage 4 (severe); E11.621 Type 2 diabetes mellitus with foot ulcer; N25.81 Secondary hyperparathyroidism of renal origin; L97.529 Non-pressure chronic ulcer of other part of left foot with unspecified severity; E11.319 Type 2 diabetes mellitus with unspecified diabetic retinopathy without macular edema; D63.1 Anemia in chronic kidney disease; I25.10 Atherosclerotic heart disease of native coronary artery without angina pectoris; I50.9 Heart failure, unspecified; E66.9 Obesity, unspecified; N17.9 Acute kidney failure, unspecified; Z20.822 Contact with and (suspected) exposure to COVID-19; E11.42 Type 2 diabetes mellitus with diabetic polyneuropathy; B95.61 Methicillin susceptible Staphylococcus aureus infection as the cause of diseases classified elsewhere; E11.22 Type 2 diabetes mellitus with diabetic chronic kidney disease; Z79.4 Long term (current) use of insulin; Z88.8 Allergy status to other drugs, medicaments and biological substances; Z79.899 Other long term (current) drug therapy; Q63.2 Ectopic kidney; Z22.7 Latent tuberculosis
CPT/HCPCS: 36415; 71045; 73721; 76000; 76770; 80048; 80053; 80074; 80202-TC; 81000-TC; 82570-TC; 82962; 83605; 83970; 84100-TC; 84302-TC; 84484; 85025; 85610-TC; 85730-TC; 86480; 86886; 86900; 86901; 87040-TC; 87070-TC; 87081; 87086; 87186-TC; 87230-TC; 88305; 88311; 93005; 93923; 93971; 94010; 94760; 96365; 96367; C1750; J0690; J0692; J0696; J0878; J0885; J1644; J1650; J1815; J2001; J2020; J2250; J2405; J2543; J2590; J3010; J3370; J3490; J7030; J7040; J7050; J7060